=== PATIENT | male | born 1945 | race Caucasian/White ===

== ENCOUNTER 2017-07-19 06:46 | Day surgery (SDC) | payer OTHER ==
[~2017-07-19] VITALS: Ht 177.8 cm; Wt 117.9 kg
[~2017-07-19 06:46] MED LIST: ADDERALL 30 MG30 MG PO; ATENOLOL 25 MG25 M1 PO; CHILDREN'S ASPI81 M1 PO; GLUCOSAMINE &1 EACH PO; LEVEMIR SUBQ; LOSARTAN-HCTZ1 EAC2 PO; MULTIVITAMINS1 EAC7 PO; REQUIP3 MG PO; SIMVASTATIN40 MG PO; SLEEP AID50 MG PO; STOOL SOFTENER100 MG PO
[2017-07-19 10:05] LABS: CALCIUM 9.2 mg/dL (8.5-10.1); CREATININE 0.9 mg/dL (0.7-1.3); POTASSIUM 3.9 mmol/L (3.5-5.1)
[2017-07-19 11:42] VITALS: BP 104/76
== END 2017-07-19 12:45 | disposition home or self-care (01) ==
LOC: TBA 06:46 → OR 06:46
PROVIDERS: Preventive Medicine Occupational Medicine
DX: M48.07 Spinal stenosis, lumbosacral region (principal); M51.36 Other intervertebral disc degeneration, lumbar region; E11.9 Type 2 diabetes mellitus without complications; Z79.899 Other long term (current) drug therapy; Z88.0 Allergy status to penicillin; Z79.82 Long term (current) use of aspirin; Z79.4 Long term (current) use of insulin
CPT/HCPCS: 50010; 50101; 50386; 50417; 53322; 56524; 62110; 62850; 70005

== ENCOUNTER 2017-08-24 05:21 | Day surgery (SDC) | payer OTHER ==
[~2017-08-24] VITALS: Ht 177.8 cm; Wt 113.4 kg
[2017-08-24 07:07] LABS: CALCIUM 9.2 mg/dL (8.5-10.1); CREATININE 0.9 mg/dL (0.7-1.3); POTASSIUM 3.6 mmol/L (3.5-5.1)
[2017-08-24 07:44] VITALS: BP 136/88
== END 2017-08-24 10:23 | disposition home or self-care (01) ==
LOC: OR 05:21 → TBA 05:21 → OR 08:29
PROVIDERS: Anesthesiology
DX: M51.36 Other intervertebral disc degeneration, lumbar region (principal); M48.07 Spinal stenosis, lumbosacral region; M54.5 Low back pain; I10 Essential (primary) hypertension; E11.9 Type 2 diabetes mellitus without complications; E78.5 Hyperlipidemia, unspecified; E66.09 Other obesity due to excess calories; Z88.0 Allergy status to penicillin; Z79.899 Other long term (current) drug therapy; Z79.82 Long term (current) use of aspirin; Z79.4 Long term (current) use of insulin; Z85.46 Personal history of malignant neoplasm of prostate
CPT/HCPCS: 50010; 50101; 50386; 50417; 53338; 54118; 56524; 56526; 62110; 62900; 70005

== ENCOUNTER → 2018-03-25 | Outpatient (CLI) | payer OTHER | LOC: RAD 09:08 | DX: M47.894 Other spondylosis, thoracic region (principal); M40.294 Other kyphosis, thoracic region ==